=== PATIENT | male | born 1990 | race Two or more races ===

== ENCOUNTER 2018-07-14 19:29 | Emergency (ER) | payer BC ==
[~2018-07-14] VITALS: Ht 175.3 cm; Wt 86.3 kg
[~2018-07-14 19:29] MED LIST: ALBU8HFA PO; PRED50TA PO
[2018-07-14] MEDS ORDERED: dexamethasone sod phosphate 10mg/ml inj PO STA (19:45)
[2018-07-14] MEDS ORDERED: acetaminophen 325mg tablet PO ONE (19:45)
[2018-07-14] MEDS ORDERED: ondansetron 4mg rapidly disintigrating tab PO ONE (19:45)
[2018-07-14] MEDS ORDERED: CLIN300C3 PO (20:59)
[2018-07-14 21:31] VITALS: BP 136/82
== END 2018-07-14 21:44 | disposition home or self-care (01) ==
LOC: ER 19:30
DX: J36 Peritonsillar abscess (principal); J45.909 Unspecified asthma, uncomplicated; H61.23 Impacted cerumen, bilateral; F12.90 Cannabis use, unspecified, uncomplicated; Z79.899 Other long term (current) drug therapy
CPT/HCPCS: 69210; 87081; 87880; 99284; J1100

== ENCOUNTER 2019-09-24 15:50 | Emergency (ER) | payer BC, MEDICAID ==
[~2019-09-24] VITALS: Ht 175.3 cm; Wt 93.0 kg
[~2019-09-24 15:50] MED LIST changes: +CLIN300C3 PO
[2019-09-24 16:11] VITALS: BP 141/96
[2019-09-24] MEDS ORDERED: AMOX-422 PO (19:29)
[2019-09-24] MEDS ORDERED: IBUP-1984 PO (19:29)
== END 2019-09-24 19:42 | disposition home or self-care (01) ==
LOC: ER 15:50
DX: J03.90 Acute tonsillitis, unspecified (principal); R59.1 Generalized enlarged lymph nodes; R11.10 Vomiting, unspecified; J45.909 Unspecified asthma, uncomplicated; F12.90 Cannabis use, unspecified, uncomplicated; Z79.899 Other long term (current) drug therapy
CPT/HCPCS: 70490; 99284

== ENCOUNTER 2020-03-22 13:14 | Emergency (ER) | payer MEDICAID ==
[~2020-03-22] VITALS: Ht 175.3 cm; Wt 97.9 kg
[~2020-03-22 13:14] MED LIST changes: -ALBU8HFA PO; -CLIN300C3 PO; +PANT40TA4 PO; -PRED50TA PO
[2020-03-22] MEDS ORDERED: HYDROcodone/acetaminophen 5mg/325mg tablet PO ONE (14:50)
[2020-03-22 14:58] VITALS: BP 143/99
[2020-03-22] MEDS ORDERED: HYDR-3965 PO (15:03)
== END 2020-03-22 15:14 | disposition home or self-care (01) ==
LOC: ER 13:15
DX: M79.642 Pain in left hand (principal); J45.909 Unspecified asthma, uncomplicated; M79.89 Other specified soft tissue disorders; F12.90 Cannabis use, unspecified, uncomplicated; Z90.49 Acquired absence of other specified parts of digestive tract; Z79.899 Other long term (current) drug therapy
CPT/HCPCS: 29125; 73130; 99283

== ENCOUNTER 2025-01-26 15:26 | Emergency (ER) | payer MEDICAID ==
[~2025-01-26] VITALS: Ht 175.3 cm; Wt 75.0 kg
[~2025-01-26 15:26] MED LIST changes: -PANT40TA4 PO; +PANT40TA54 PO
[2025-01-26 15:32] VITALS: BP 151/102; PULSE 83; RESP 18; TEMP 97.4; O2SAT 100
== END 2025-01-26 17:52 | disposition left against medical advice (07) ==
LOC: ER 15:26
DX: M25.511 Pain in right shoulder (principal); J45.909 Unspecified asthma, uncomplicated; Z90.49 Acquired absence of other specified parts of digestive tract; F12.90 Cannabis use, unspecified, uncomplicated; Z79.899 Other long term (current) drug therapy; V89.2XXA Person injured in unspecified motor-vehicle accident, traffic, initial encounter; Y93.89 Activity, other specified; Y92.89 Other specified places as the place of occurrence of the external cause; Y99.8 Other external cause status
CPT/HCPCS: 99281

== ENCOUNTER 2025-05-04 08:33 | Outpatient (CLI) | payer MEDICAID ==
--- NOTE | 2025-05-04 13:56 | RADIOLOGY REPORT ---
EXAM: CT CT LOWER EXTREMITY HISTORY: PAIN IN LEFT KNEE COMPARISON: No comparison studies are available. TECHNIQUE: Noncontrast axial CT images of the left knee were performed. Sagittal and coronal reformat eduardo images were obtained. This CT exam was performed using one or more of the following dose reductio n techniques: Automated exposure control, adjustment of the mA and/or kv according to patient size, o r the use of iterative reconstruction techniques. Radiation Dose Information: CTDI volume is 16.76 mG y. Dose-length product is 470.45 mGy*cm FINDINGS: No acute fracture is identified about left knee. No significant joint space narrowing or de generative changes. There is a small joint effusion. IMPRESSION: 1. No acute fracture or significant degenerative changes of the left knee. 2. Small left knee effusion. 3. If the patient's symptoms persist or worsen, consider follow-up noncontrast MRI of the left knee f or further evaluation of the ligaments and menisci.
== END 2025-05-04 23:59 | disposition home or self-care (01) ==
LOC: RAD 08:33
PROVIDERS: ATTEND Pediatrics Sports Medicine
DX: M25.562 Pain in left knee (principal)
CPT/HCPCS: 73700

== ENCOUNTER 2025-05-18 11:32 | Emergency (ER) | payer MEDICAID ==
[~2025-05-18] VITALS: Ht 175.3 cm; Wt 80.9 kg
[2025-05-18 11:44] VITALS: BP 120/88; PULSE 84; RESP 16; O2SAT 99
--- NOTE | 2025-05-18 11:44 | ELECTROCARDIOGRAPH REPORT ---
[facility] Test Date: 2025-05-18 Test Time: 11:38:03 Pat Name: ESTRELLA MCDOWELL Department: EMERGENCY ROOM Room: Gender: M Painter Maintenance: FELI : 1990 Requested By: DEPARTMENT EMERGENCY Order Number: [id number] Reading MD: Measurements Intervals [place] Rate: 74 P: 35 LA: 162 QRS: 70 QRSD: 97 T: 31 QT: 349 QTc: 388 Interpretive Statements Sinus rhythm Please click the below link to view image of tracing.
--- NOTE | 2025-05-18 12:38 | Physician Documentation ---
History of Present Illness ~ Chief Complaint: Palpitations Stated Complaint: TACHYCARDIA Time Seen by MD: 12:33 Primary Medical Doctor: [facility] HPI Patient is a 34-year-old gentleman that presents to the emergency department via ambulance after experiencing what he describes as a panic attack after consuming a portion of an energy drink and smoking a cigarette prior to. She reports that he has an anxiety disorder although he has successfully been able to taper off of his medications since January. Patient reports he has not experienced this before and was very alarmed called his mother spoke with her on the phone for approximately 20 minutes in an attempt to calm down. Was unable to so his girlfriend then called an ambulance. Patient reports that during the episode he felt woozy and needed to sit down and experienced what felt like an increase in heart rate. Medication Reconciliation Allergies: Coded Allergies: No Known Allergies (Unverified , 05/18/25) Scheduled Pantoprazole Sodium (Pantoprazole Sodium), 40 MG PO BID Past Medical History Past Medical History: Asthma Past Surgical History: appendectomy Alcohol Use: None Drug Use: marijuana Lives with: Family Lives In: Home Occupation: employed Review of Systems ROS As stated above in the HPI, otherwise all systems are reviewed and negative. Physical Exam Vital Signs: Temperature: 98.4, Source: Oral, Heart Rate: 84, Respiratory Rate: 16, BP: 120/88, Pulse Oximetry: 99, Weight: 80.900 Oxygen Flow Rate: 0 Physical Exam VITALS: Reviewed and as above. GENERAL: Alert, no apparent distress. HEENT: Normocephalic, atraumatic, PERRL, EOMI, dry mucosa, no erythema RESPIRATORY: Lungs clear, normal breath sounds, no respiratory distress. CHEST: No accessory muscle use, no retractions CV: Regular rate, rhythm, no edema, no murmur, No: JVD GI: Soft, non-tender, bowels sounds present, no rebound, guarding, or rigidity BACK: No CVA tenderness, or swelling MUSCULOSKELETAL No deformities, no edema SKIN: Warm and dry, no rash NEURO: Oriented x4, No motor or sensory deficit PSYCH: Normal mood and affect, no agitation Progress Results/Orders Results/Orders Vital Signs 05/18/25 11:44 Temp 98.4 Pulse 84 Resp 16 B/P (MAP) 120/88 Pulse Ox 99 O2 Flow Rate 0 Medical Decision Making Findings This patient presents with symptoms consistent with acute anxiety reaction / panic attack after energy drink. Low suspicion for acute cardiopulmonary process including ACS, PE, or thoracic aortic dissection. Denies any ingestions anything other than an energy drink this morning or any other medical complaint s. No evidence of alcohol withdrawal symptoms. Given history and physical presentation not consistent with overt toxidrome, ingestion. Presentation not consistent with a medical emergency at this time. No acute indication for psychiatric consultation (without SI/HI, AH/VH). Cautious return precautions discussed with full understanding. Patient will follow up with his primary care provider. Provided with strict return precautions and he demonstrated good understanding of today's education. Differential Dx:Considerations: Include: angina / DC, atrial dysrhythmia, atrial fibrillation, atrial flutter, MAT, PACs, PSVT, sinus tachycardia, WPW, 1st degree AV block, 2nd degree AVB-type 1, 2nd degree AVB-type 2, 3rd degree AV block, PVCs, torsades de pointes, ventricular fibrillation, ventricular tachycardia, other Differential Dx:Considerations: Include anxiety/panic attack, Include digoxin toxicity, Include electrolyte disorder, Include heart failure, Include hyperthyroidism, Include hyperventilation, Include hypoxia, Include pacemaker malfunction, Include pulmonary embolus, Include renal failure, Include other Departure Disposition: 01 HOME / SELF CARE / HOMELESS Impression: Primary Impression: Palpitations Additional Impression: Anxiety Condition: Stable Discharge Instructions: Palpitations, [id number], Panic Attack, [id number] Additional Instructions: This patient presents with symptoms consistent with acute anxiety reaction / panic attack after energy drink. Low suspicion for acute cardiopulmonary process including ACS, PE, or thoracic aortic dissection. Denies any ingestions anything other than an energy drink this morning or any other medical complaints. No evidence of alcohol withdrawal symptoms. Given history and physical presentation not consistent with overt toxidrome, ingestion. Present ation not consistent with a medical emergency at this time. No acute indication for psychiatric consultation (without SI/HI, AH/VH). Cautious return precautions discussed with full understanding. Patient will follow up with his primary care provider. Provided with strict return precautions and he demonstrated good understanding of today's education. Referrals: NO PRIMARY CARE PROVIDER (PCP) Education Educated: Patient Educated regarding: diagnosis, treatment, need for follow up Signature Scribe Signature: A Attestation: Scribed for Emergency,Department by NBA Ibarra . 05/18/25 12:42 AGUSTIN HINES May 18, 2025 12:38
[2025-05-18 12:53] VITALS: TEMP 98.4
== END 2025-05-18 12:55 | disposition home or self-care (01) ==
LOC: ER 11:32
DX: R00.2 Palpitations (principal); F41.9 Anxiety disorder, unspecified; J45.909 Unspecified asthma, uncomplicated; F12.90 Cannabis use, unspecified, uncomplicated; F17.210 Nicotine dependence, cigarettes, uncomplicated; Z90.49 Acquired absence of other specified parts of digestive tract
CPT/HCPCS: 93005; 99283